=== PATIENT | female | born 1955 | race Caucasian/White ===

== ENCOUNTER 2018-12-18 00:56 | Emergency (ER) | payer BC ==
--- NOTE | 2018-12-18 02:08 | ED Physician Documentation ---
PD HPI SYNCOPE - Stated complaint Stated Complaint: BP CONCERN - Chief complaint Chief Complaint: General - History obtained from History obtained from: Patient - History of Present Illness Witnessed: Unwitnessed Timing - onset: How many hours ago (few) Duration: Seconds (She says she was standing in her kitchen preparing food and felt lightheaded. She denied dyspnea nor chest pain. It lasted several seconds or so. She did not have any fall. She felt like her head was having some throbbing and was concerned about her blood pressure and took it and was elevated at 190/100. She does not have any history of high blood pressure. She took it a few more times and it remained elevated and so came in for evaluation.) Preceding symptoms: No: Headache, Chest pain Associated symptoms: Headache (mild throbbing headache afterward, and felt like her BP was elevated.) Contributing factors: Decreased PO intake (somewhat decreased food intake the past 4-5 days due to some left abd pain that she thought was diverticulitis. Clear liquids the past few days and the abd pain has improved.). No: Recent med change Similar symptoms before: Diagnosis (has not had elevated BP in the past. No heart problems nor near syncope. Has had the stomach pains in the past related to abd abscess and episode of diverticulitis.) Review of Systems Constitutional: reports: Fatigue. denies: Fever, Chills, Myalgias Nose: denies: Rhinorrhea / runny nose, Congestion Throat: denies: Sore throat Respiratory: denies: Cough GI: reports: Abdominal Pain (left upper abd for several days), Nausea. denies: Vomiting, Constipation, Diarrhea, Bloody / black stool Skin: denies: Rash, Lesions Neurologic: reports: Headache. denies: Altered mental status, Head injury PD PAST MEDICAL HISTORY - Past Medical History Past Medical History: Yes Cardiovascular: None Respiratory: None Neuro: None Endocrine/Autoimmune: None GI: Diverticulitis Other Past Medical History: pt has a hx of abdominal issues hernia left abdomen - Past Surgical History Past Surgical History: Yes /[employer]TE [employer]: Hysterectomy - Allergies Allergies/Adverse Reactions: Allergies Allergy/AdvReac Type Severity Reaction Status Date / Time No Known Drug Allergies Allergy Verified 12/18/18 01:12 - Social History Does the pt smoke?: No Smoking Status: Never smoker PD ED PE NORMAL - Vitals Vital signs reviewed: Yes - General General: Alert and oriented X 3, No acute distress, Well developed/nourished - HEENT HEENT: Moist mucous membranes, Pharynx benign - Neck Neck: Supple, no meningeal sign, No adenopathy - Cardiac Cardiac: RRR, No murmur - Respiratory Respiratory: Clear bilaterally - Abdomen Abdomen: Normal bowel sounds, Soft - Back Back: No CVA TTP - Derm Derm: Normal color, Warm and dry - Extremities Extremities: No edema, No calf tenderness / cord - Neuro Neuro: Alert and oriented X 3, No motor deficit, Normal speech Results - Vitals Vitals: Vital Signs - 24 hr 12/18/18 12/18/18 01:06 03:15 Temperature 36.2 C L Heart Rate 80 71 Respiratory 20 18 Rate Blood Pressure 184/81 H 157/90 H O2 Saturation 98 98 Oxygen O2 Source Room air - EKG (time done) 02:52 Rate: Rate (enter#) (69) Rhythm: NSR [place]: Normal Intervals: Normal [place] QRS: Normal Ischemia: Normal ST segments. No: ST elevation c/w ischemia, ST depression PD MEDICAL DECISION MAKING - ED course Complexity details: considered differential (The episode of lightheadedness did not have chest pain or dyspnea with it. Her blood pressure elevation this evening was isolated historically without prior known high blood pressure but had not had it checked for a few months. We would see how it does over the next week or 2 and see if there is a trend. Her EKG is normal. Exam is otherwise benign. I did not feel further workup was needed at this time.), d/w patient Departure - Departure Disposition: 01 Home, Self Care Clinical Impression: Elevated blood pressure reading, Light-headed feeling Condition: Stable Record reviewed to determine appropriate education?: Yes Instructions: ED Hypertension Poss, ED Near Syncope Unkn Comments: Regarding the blood pressure, we would want to see how it does over several days or actually a couple of weeks to see if it has consistent elevation before initiating treatment. Commonly its elevated in response to other conditions. Stay well-hydrated. Recheck if repetitive episodes of lightheadedness or other symptoms. Follow-up with your primary care. Discharge Date/Time: 12/18/18 03:30
[2018-12-18 03:16] VITALS: BP 157/90
== END 2018-12-18 03:30 | disposition home or self-care (01) ==
LOC: ED 00:56
DX: R03.0 Elevated blood-pressure reading, without diagnosis of hypertension (principal); R42 Dizziness and giddiness
CPT/HCPCS: 93005; 99283

== ENCOUNTER 2023-01-16 09:00 | Outpatient (CLI) | payer BC | END 2023-01-16 09:15 | disposition home or self-care (01) | LOC: LAB.N 09:00 | PROVIDERS: ATTEND Physician Assistant Medical | DX: N30.00 Acute cystitis without hematuria (principal) | CPT/HCPCS: 87086 ==

== ENCOUNTER 2023-10-27 14:57 | Outpatient (CLI) | payer BC ==
--- NOTE | 2023-10-27 15:49 | Sleep Patient Instructions ---
Sleep Center Visit Summary - Patient Visit Information Reason for Visit: Initial consult for evaluation of sleep disordered breathing and other sleep issues. - Patient Instructions Instructions Attached: Sleep Study, Sleep Study Home Monitor Additional Instructions: You will be completing a sleep study, either an in-lab polysomnography (PSG) or home sleep study (HST). You will follow-up in the sleep care office after the sleep study is completed to hear the results and talk about therapy, if needed. You will be called by our office staff to schedule this appointment, but you may contact us with any questions. - Clinic Information Contact: [facility] [address] [place] [id number] [email or web address] T: [phone]
--- NOTE | 2023-10-27 15:59 | SLEEP CARE CONSULTATION ---
Information from patient questionnaire entered by Yadi Saez. I have reviewed and concur with the information entered by Yadi Saez. This document represents the service I personally performed and the decisions made by me, Sara Kinsey ARNP. History of Present Illness Service Date and Time: 10/27/2023 7397 Reason for Visit: New patient Chief Complaint: reports: Other (Frequent headaches) Date of Onset: 3-4YRS Usual bedtime: 1130PM - 12AM Time it takes to fall asleep: 10 MIN OR LESS Snores at night: No Observed to quit breathing while asleep: No Number of times waking at night: 1-2 Reasons for waking at night: reports: Bathroom, Other (AWARENESS OF HEADACH AND UNKNOWN). denies: Choking, Snoring, Gasping for air Toss, Turn, or Twitch while sleeping: Yes Recalls having dreams: Yes Usually gets out of bed at: 7AM Feels refreshed in the morning: Yes (somewhat refreshed to refreshed feeling generally) Morning headache: Yes (1 time a week; AFTER TAKING EXCEDRIN) Sleepy or fatigued during the day: No Ever fallen asleep while driving: No Takes day naps: No Prior sleep studies: No Additional HPI information: I had the pleasure of seeing CICI WATKINS today regarding the possibility of her having a sleep disorder. Her current complaint is having frequent headaches. She says back in April, she was having headaches almost every morning and her primary provider encouraged her to have a sleep study because she also has hyp ertension. They are monitoring the blood pressure and she implemented some lifestyle changes. She has increased her activity and exercise. She has lost 20 pounds. She says seems to be improving overall. She says she has less headaches, only about 1 a week. She says that she lives alone, so there is no one to hear if she snores. When she was still , her never complained of her snoring or told her she stopped breathing during the night. She has rarely "snorted" upon awakening but states this is not a regular occurrence. She says she mostly wakes up feeling somewhat refreshed to refreshed in the morning. She says she is not a morning person. She states she feels she has good energy and no sleepiness during the day. She has a history of migraines. 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 Patient is and lives in . Have you smoked in the past 12 months: No Cigarettes per day (20/pack): 20 Years of smokin Quit date: 1979 Smoking Pack Years: 4.0 Alcohol use: Yes Alcohol amount and frequency: 1 DRINK 1-2 X A WEEK Caffeine use: Yes Caffeine amount and frequency: 1 CUP EVERY MORNING Family History Family history of sleep disordered breathing: No Allergies and Home Medications Known drug allergies: No Drug allergies reviewed: Yes Home medication list reviewed: Yes Allergy and home medication list: Allergies No Known Drug Allergies Allergy (Verified 10/25/23 11:36) Home Medications Medication Instructions Recorded Confirmed Last Taken Type Acetaminophen [Tylenol] See Rx Instructions .ROUTE .COMPLEX 10/27/23 10/27/23 Unknown History Aspirin/Acetaminophen/Caffeine See Rx Instructions .ROUTE .COMPLEX 10/27/23 10/27/23 Unknown History [Migraine Formula Caplet] Ibuprofen [Advil] See Rx Instructions .ROUTE .COMPLEX 10/27/23 10/27/23 Unknown History SUMAtriptan [Imitrex] See Rx Instructions .ROUTE .COMPLEX 10/27/23 10/27/23 Unknown History Review of Systems Weight loss over past 5 years: 17 Cardiovascular: reports: high blood pressure, palpitations, leg or foot swelling Gastrointestinal: reports: abdominal pain. denies: heartburn Neurological: reports: headaches Psychiatric: denies: anxiety, depression Ear/Nose/Throat: reports: dry mouth/throat, wisdom teeth removed. denies: tonsillectomy Musculoskeletal: reports: neck pain, other (SHOULDER PAIN) Immunologic: reports: sneezing Physical Exam Vital signs obtained and entered by: YADI Bernal MA Blood Pressure: 158/87 (RIGHT ) Cuff size: wrist Heart Rate: 62 O2 Saturation: 97 Height: 5 ft 4 in Weight: 160 lb 12.8 oz Body Mass Index: 27.6 BMI Classification: Overweight Neck circumference: 13 Mouth and throat: narrow oropharynx Soft palate: long Hard palate: normal Uvula: normal Uvula visualization: 50% Mallampati Class II Tongue: enlarged in size with teeth wood on lateral edges Tonsils: 1+ Neck: normal w/o lymphadenopathy or thyromegaly Heart: regular rate and rhythm Lungs: clear bilaterally Impression and Plan 1. Suspected Obstructive Sleep Apnea-Hypopnea Syndrome, as suggested by a history of morning headache and cognitive impairment. She has hypertension. I think she has a mild chance of having sleep disordered breathing. Narrow orop harynx and obesity are common predisposing factors for obstructive sleep apnea- hypopnea syndrome. I recommend proceeding to polysomnography to confirm the diagnosis and to assess severity. If the patient has significant sleep disordered breathing, a manual CPAP titration study will also be performed to find the optimal treatment pressure. I informed the patient of what the sleep studies involve and after some discussion, obtained agreement to proceed. The pathophysiology of obstructive sleep apnea-hypopnea syndrome was discussed with the patient and health risks of cardiovascular and cerebrovascular disease if not treated. Risks of drowsy driving discussed in detail and patient advised to avoid long distance driving and to well puller at the first sign of drowsiness. Patient agreed to plan. * Schedule polysomnography +- manual CPAP titration study and return in 1-2 weeks after the study to discuss result and initiate therapy. * Avoid long distance driving or driving when feeling sleepy. * Avoid alcohol, sedative and muscle relaxant around bedtime. * Attempt to lose weight. * Review instructions provided by trained office staff on how to prepare for the sleep study. * Return for follow-up after sleep study completed. Counseling Topics: Weight loss health impact Plan: PSG/HST Visit Type: In Office Time Spent with Patient (minutes): 42 Provider Statement: I spent 100% of the Face to Face Visit with the patient with greater than 50% spent counseling the patient and coordination of care.
[2023-10-27 16:14] VITALS: BP 158/87; O2SAT 97
== END 2023-10-27 14:58 | disposition home or self-care (01) ==
LOC: SC 14:57
PROVIDERS: ATTEND Nurse Practitioner Family
DX: R51.9 Headache, unspecified (principal); I10 Essential (primary) hypertension; R41.89 Other symptoms and signs involving cognitive functions and awareness; E66.3 Overweight; Z68.27 Body mass index [BMI] 27.0-27.9, adult; Z87.891 Personal history of nicotine dependence
CPT/HCPCS: 99203; 99212

== ENCOUNTER 2023-12-21 12:25 | Outpatient (CLI) | payer BC | END 2023-12-21 12:26 | disposition home or self-care (01) | LOC: SC 12:25 | PROVIDERS: ATTEND Nurse Practitioner Family | DX: R41.89 Other symptoms and signs involving cognitive functions and awareness (principal); R51.9 Headache, unspecified; E66.3 Overweight; I10 Essential (primary) hypertension; R09.02 Hypoxemia | CPT/HCPCS: 95806 ==

== ENCOUNTER 2024-01-10 14:27 | Outpatient (CLI) | payer BC ==
--- NOTE | 2024-01-10 14:54 | Sleep Patient Instructions ---
Sleep Center Visit Summary - Patient Visit Information Reason for Visit: Sleep study follow-up - Patient Instructions Additional Instructions: Your sleep study today was negative for significant sleep disordered breathing. However, you did have elevated respiratory episodes when sleeping on your back. You should avoid sleeping on your back to control these respiratory episodes. Follow-up as needed. - Clinic Information Contact: [facility] [address] [place] [address] [email or web address] T: [phone]
--- NOTE | 2024-01-10 16:01 | SLEEP CARE CONSULTATION ---
Information from patient questionnaire entered by Luz Saez. I have reviewed and concur with the information entered by Luz Saez. This document represents the service I personally performed and the decisions made by , Sara Kinsey ARNP. History of Present Illness Service Date and Time: 01/10/20241426 Initial [place] Sleepiness Scale score: 5 (10/24/23) Current [place] Sleepiness Scale score: 4 (01/10/24) Additional HPI information: CICI WATKINS returns for follow up and results of the recently performed home sleep study. The patient was informed of the following findings: No significant sleep disordered breathing with an average AHI of 2.5 and hardik oxygen saturation of 86%. Her supine AHI was minimally elevated at 5.8. I explained the pathophysiology behind obstructive sleep apnea. Patient does not have sleep apnea and was advised how weight gain could increase the risk of developing sleep apnea in the future. I strongly encouraged the patient to lose weight. Patient does not have significant sleep disordered breathing but has elevated AHI in supine position so advised positional therapy. Methods to achieve positional management therapy were discussed; such as, positioning with pillows, wearing a T-shirt with tennis balls sewn into the back or commercially available products. Patient counseled not drink alcohol less than 4 hours before bedtime as it can increase snoring and apnea. Patient was cautioned about risks of drowsy driving until sleepiness symptoms resolve. Patient denies drowsy driving. Sleep Study - Results Type of Sleep Study: Home sleep study (COMPLETED 12/21/23) Prior sleep studies: No Polysomnography/Home Sleep Study results: Physician Impression: The quality of the study is good. The length of the study is adequate (> 240 minutes). Please also see the tabulated and graphic data. 1. No significant sleep disordered breathing, with an AHI of 2.5/hr and hardik SaO2 of 86%. During the study, the patient had 4 apneas (4 obstructive, 0 central, 0 mixed) and 13 hypopneas. The longest episode lasted 124.5 seconds. The respiratory events occurred almost exclusively during supine sleep (supine AHI was 5.8 and non-supine, 1.54). 2. Hypoxemia (ICD-10 R09.02), minimal, with the lowest oxygen saturation of 86 % and 6.6 minutes with SaO2 under 90%. Baseline oxygen saturation was normal (Average oxygen saturation was 93%). Allergies and Home Medications Known drug allergies: No Drug allergies reviewed: Yes Home medication list reviewed: Yes (no changes) Allergy and home medication list: Allergies No Known Drug Allergies Allergy (Verified 01/08/24 09:18) Review of Systems Review of systems same as previous: Yes (NO CHANGE) Physical Exam Vital signs obtained and entered by: LUZ Bernal MA Blood Pressure: 151/84 (RIGHT) Cuff size: wrist Heart Rate: 66 O2 Saturation: 99 Height: 5 ft 4 in Weight: 161 lb 12.8 oz Body Mass Index: 27.8 BMI Classification: Overweight Impression and Plan 1. Hypoxemia, minimal, with a hardik oxygen saturation of 86% and 6.6 minutes spent under 90%. The baseline oxygen saturation was normal with an average oxygen saturation of 93%. 2. She had no significant sleep disordered breathing. However, she did have a minimally elevated supine AHI at 5.8 and should avoid sleeping supine. 3. Overweight, unspecified. Currently patients BMI is 27.8. She is actively trying to lose weight. Obesity increases the risk of apnea, CPAP pressure requirements and overall health risks especially cardiovascular and diabetes. Thus patient is advised to continue to try to lose weight. * Avoid sleeping supine * Continue to try to lose weight * Avoid alcohol consumption near bedtime * Return as needed for follow up. Counseling Topics: Sleeping position, Weight loss health impact Visit Type: In Office Time Spent with Patient (minutes): 20 Provider Statement: I spent 100% of the Face to Face Visit with the patient with greater than 50% spent counseling the patient and coordination of care.
[2024-01-10 16:09] VITALS: BP 151/84; O2SAT 99
== END 2024-01-10 14:28 | disposition home or self-care (01) ==
LOC: SC 14:27
PROVIDERS: ATTEND Nurse Practitioner Family
DX: R09.02 Hypoxemia (principal)
CPT/HCPCS: 99212; 99213